=== PATIENT | male | born 1980 | race Two or more races ===

== ENCOUNTER 2021-08-01 10:51 | Emergency (ER) | payer MEDICAID, OTHER ==
[~2021-08-01] VITALS: Ht 185.4 cm; Wt 117.9 kg
[2021-08-01 11:55] VITALS: BP 136/85
[2021-08-01] MEDS ORDERED: CLINDAMYCIN 900MG IV 50 ML IV ONE (12:00)
[2021-08-01] MEDS ORDERED: cefTRIAXone 1GM/50ML D5W 50 ML IV ONE (12:00)
[2021-08-01] MEDS ORDERED: KETOROLAC TROMETH 30 MG/ML 1ML VIAL IV ONE (12:00)
== END 2021-08-01 13:33 | disposition home or self-care (01) ==
LOC: ER 10:51
DX: K02.9 Dental caries, unspecified (principal); F17.210 Nicotine dependence, cigarettes, uncomplicated; J45.909 Unspecified asthma, uncomplicated
CPT/HCPCS: 96365; 96368; 96375; 99284; J0696; J1885; J3490

== ENCOUNTER 2021-08-02 14:18 | Emergency (ER) | payer MEDICAID ==
[~2021-08-02] VITALS: Ht 185.4 cm; Wt 117.9 kg
[2021-08-02] MEDS ORDERED: cefTRIAXone 1GM/50ML D5W 50 ML IV ONE ×2 (15:00)
[2021-08-02 15:18] VITALS: BP 144/82
== END 2021-08-02 16:21 | disposition home or self-care (01) ==
LOC: ER 14:18
DX: K02.9 Dental caries, unspecified (principal); J45.909 Unspecified asthma, uncomplicated; E03.9 Hypothyroidism, unspecified; F17.210 Nicotine dependence, cigarettes, uncomplicated; Z88.1 Allergy status to other antibiotic agents
CPT/HCPCS: 96365; 99284; J0696

== ENCOUNTER 2024-05-14 09:57 | Emergency (ER) | payer MEDICAID, OTHER ==
[~2024-05-14] VITALS: Ht 185.4 cm; Wt 111.1 kg
[2024-05-14 10:28] VITALS: BP 129/72; PULSE 84; RESP 17; TEMP 97.6; O2SAT 97
[2024-05-14] MEDS: KETOROLAC TROMETH 60MG/2ML VIAL IM ONE (10:41)
[2024-05-14] MEDS ORDERED: IBUP-1456 PO (11:07)
== END 2024-05-14 11:16 | disposition home or self-care (01) ==
LOC: ER 09:57
DX: S83.8X2A Sprain of other specified parts of left knee, initial encounter (principal); J45.909 Unspecified asthma, uncomplicated; F32.9 Major depressive disorder, single episode, unspecified; F17.210 Nicotine dependence, cigarettes, uncomplicated; Z88.1 Allergy status to other antibiotic agents; Z79.899 Other long term (current) drug therapy; X50.1XXA Overexertion from prolonged static or awkward postures, initial encounter; Y93.89 Activity, other specified; Y92.89 Other specified places as the place of occurrence of the external cause; Y99.0 Civilian activity done for income or pay
CPT/HCPCS: 73562; 96372; 99283; J1885

== ENCOUNTER 2025-04-16 19:03 | Emergency (ER) | payer SELFPAY ==
[~2025-04-16] VITALS: Ht 185.4 cm; Wt 111.1 kg
[~2025-04-16 19:03] MED LIST: IBUP-1456 PO
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
[2025-04-17 02:55] VITALS: BP 118/91; PULSE 69; TEMP 98.9
[2025-04-17 03:00] VITALS: RESP 20; O2SAT 98
[2025-04-17] MEDS: KETOROLAC TROMETH 60MG/2ML VIAL IM ONE (03:06)
== END 2025-04-17 03:06 | disposition home or self-care (01) ==
LOC: ER 19:03 → EDBD 19:03 → ER 22:02
DX: S16.1XXA Strain of muscle, fascia and tendon at neck level, initial encounter (principal); J45.909 Unspecified asthma, uncomplicated; F32.A Depression, unspecified; F17.210 Nicotine dependence, cigarettes, uncomplicated; Z88.0 Allergy status to penicillin; V89.2XXA Person injured in unspecified motor-vehicle accident, traffic, initial encounter; Y93.89 Activity, other specified; Y92.410 Unspecified street and highway as the place of occurrence of the external cause; Y99.8 Other external cause status
CPT/HCPCS: 72125; 96372; 99285; J1885